=== PATIENT | male | born 1935 | race Caucasian/White ===

== ENCOUNTER 2024-02-14 09:56 | Emergency (ER) | payer OTHER, SELFPAY ==
--- NOTE | ~2024-02-14 | CT_ITS ---
History: Altered mental status PROCEDURE: CT head without contrast. COMPARISON: None TECHNIQUE: Axial imaging of the head performed from the skull base to the vertex without IV contrast. Sagittal a nd coronal reformations obtained. DLP: 605 mGy-cm FINDINGS: The ventricles are minimally dilated, appropriate for age. The dilatation of the ventricles is proportional to the degree of sulcal prominence, not uncommon in the senescent brain. 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 There is no mass, mass effect or midline shift. Basal ganglia calcifications are noted. There is no abnormal extra-axial fluid collection or intracranial hemorrhage. Visualized paranasal sinuses are clear. The mastoid air cells are well aerated. No acute displaced fractures within the overlying cranium. Impression: No acute intracranial hemorrhage or suspicious mass effect. Reviewed, dictated and finalized at location A. NING OPERATOR Impression: No acute intracranial hemorrhage or suspicious mass effect.
--- NOTE | ~2024-02-14 | XR_ITS ---
Exam: Abdomen 1 V HISTORY: AMS COMPARISON: None. TECHNIQUE: Supine images of the abdomen and pelvis. FINDINGS: Bowel gas pattern is non-obstructive. There is no free air or deep sulci. No pathologic calcifications are seen. Fecal stasis distends the rectum consistent with fecal impaction. Sternal wires and mediastinal clips are identified. Multiple nondilated loops of small and large aerated bowel are present with trace mural thickening. 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 Calcified atherosclerotic disease. IMPRESSION: Nonspecific, nonobstructive bowel gas pattern, with findings suggesting fecal impaction, as detailed above. Reviewed, dictated and finalized at location A. LS INSTRUCTOR IMPRESSION: Nonspecific, nonobstructive bowel gas pattern, with findings suggesting fecal i mpaction, as detailed above.
[2024-02-14 09:53] VITALS: BP 122/61; PULSE 56; RESP 15; TEMP 36.3; O2SAT 97
--- NOTE | 2024-02-14 10:21 | ED.GENADULT ---
HPI - General Adult General Chief complaint: Altered Mental Status Stated complaint: lethargic History of Present Illness HPI narrative: 88-year-old male present to the emergency department for evaluation for difficult to arouse this morning. EMS stated that the patient's went to wake him up and she was having difficulty arousing him. Patient arrived to the emergency department via EMS and was alert and appropriate. Patient denies any pain or complaint. Patient denies any recent illnesses. Patient states he has been eating and drinking okay. Patient states only reason he was difficult to arouse because he was sleeping. Related Data Allergies Allergy/AdvReac Type Severity Reaction Status Date / Time metformin AdvReac Abdominal Unverified 02/14/24 10:03 Pain Review of Systems Review of Systems: All systems reviewed & are unremarkable except as noted in HPI and below Exam Narrative: APPEARANCE: Well appearing, no pain, no distress, well-nourished. HEAD: normocephalic, atraumatic. EYES: PERRLA/EOMI, conjunctivae clear. NOSE: Normal no drainage EARS:TMS clear with good light reflex. THROAT: Pharynx clear, no exudate. NECK: Supple. No adenopathy, no masses. RESPIRATORY: Airway patent, respirations nonlabored. Clear to auscultation bilaterally, no rales, rhonchi, wheezing. CARDIOVASCULAR: Regular rate and rhythm without murmurs rubs or gallops. ABDOMINAL: Soft, nontender, nondistended, normal bowel sounds MUSCULOSKELETAL: Moves all extremities. Strength/ROM intact, No edema, No calf tenderness. NEURO: Alert. Cranial nerves II through XII intact. Grossly intact SKIN: Warm, dry. Normal Color Course Vital Signs Vital signs: Vital Signs Temperature 97.4 F L 02/14/24 09:53 Pulse Rate 56 L 02/14/24 09:53 Respiratory Rate 15 02/14/24 09:53 Blood Pressure 122/61 02/14/24 09:53 Pulse Oximetry 97 02/14/24 09:53 Oxygen Delivery Room Air 02/14/24 09:53 Temperature 97.4 F L 02/14/24 09:53 Pulse Rate 66 02/14/24 12:03 Respiratory Rate 21 H 02/14/24 12:03 Blood Pressure 137/54 L 02/14/24 12:03 Pulse Oximetry 100 02/14/24 12:03 Oxygen Delivery Room Air 02/14/24 10:00 Medical Decision Making MDM Narrative Medical decision making narrative: 88-year-old male presents to the emergency department for evaluation after having some increased somnolence this morning. Patient states he feels this baseline denies any complaints. Patient is afebrile but does have a leukocytosis of 12.2 with a hemoglobin of 10.8. INR is 1.2. Patient does have some mild elevation AST ALT and alk-phos. No acute abnormalities on his UA. Patient was negative for influenza RSV and for COVID. X-ray does show evidence of constipation. Head CT was negative for acute intracranial abnormality. After discussion with the daughter and patient both were comfortable with plan for discharge home. Patient denies any current complaints. Differential Diagnosis Differential Diagnosis: UTI, COVID, RSV, influenza, pneumonia, dehydration, intracranial abnormality Vital Signs Vital Signs: Vital Signs Temperature 97.4 F L 02/14/24 09:53 Pulse Rate 56 L 02/14/24 09:53 Respiratory Rate 15 02/14/24 09:53 Blood Pressure 122/61 02/14/24 09:53 Pulse Oximetry 97 02/14/24 09:53 Oxygen Delivery Room Air 02/14/24 09:53 Temperature 97.4 F L 02/14/24 09:53 Pulse Rate 66 02/14/24 12:03 Respiratory Rate 21 H 02/14/24 12:03 Blood Pressure 137/54 L 02/14/24 12:03 Pulse Oximetry 100 02/14/24 12:03 Oxygen Delivery Room Air 02/14/24 10:00 Lab Data Lab results reviewed: Yes I reviewed the patient's lab results. 02/14/24 10:22 02/14/24 10:22 Labs: Lab Results 02/14/24 02/14/24 Range/Units 10:22 11:25 WBC 12.2 H (4.5-10.0) K/mm3 RBC 4.05 L (4.6-6.20) M/mm3 Hgb 10.8 L (14.0-18.0) g/dL Hct 33.8 L (42.0-52.0) % MCV 83.5 (80-100) fl MCH 26.7 (26-34) pg MCHC 32.0 (32-36) g/dl RDW 16.1 H (11.5-14.5) % Plt Count 473 H (150-375) k/mm3 MPV 11.1 H (7.4-10.4) fl Immature Gran % (Auto) 0.4 (0-0.5) % Neut % (Auto) 60.7 (45.5-73.1) % Lymph % (Auto) 8.6 L (18.3-44.2) % [place] % (Auto) 6.2 (2.6-8.5) % Eos % (Auto) 23.4 H (0-4.4) % Baso % (Auto) 0.7 (0.2-1.2) % Lymph # (Auto) 1.05 (0.9-3.2) K/mm3 [place] # (Auto) 0.8 H (0.1-0.6) K/mm3 Eos # (Auto) 2.9 H (0-0.3) K/mm3 Baso # (Auto) 0.1 (0.0-0.1) K/mm3 Abs Immat Gran (auto) 0.05 H (0.00-0.031) K/mm3 Absolute Neuts (auto) 7.4 H (1.3-6.7) K/mm3 Absolute Nucleated RBC 0.000 (0.0-0.012) K/mm3 Nucleated RBC % 0.0 (0.0-0.2) % Platelet Estimate Increased (Adequate) Anisocytosis 1+ Ovalocytes 1+ [place] Cells 1+ Schistocytes None seen PT 15.6 H (11.1-14.7) Seconds INR 1.2 APTT 32.1 (22.3-36.8) Seconds Sodium 132 L (137-145) mmol/L Potassium 4.2 (3.4-5.0) mmol/L Chloride 100 (98-107) mmol/L Carbon Dioxide 31 H (22-30) mmol/L Anion Gap 1 L (4-12) mmol/L BUN 43 H (9-20) mg/dL Creatinine 1.00 (0.7-1.3) mg/dL Estim Creat Clear Calc 36 ml/min Estimated GFR > 60 (59 - ) Glucose 138 H (65-110) mg/dL Calcium 9.6 (8.4-10.2) mg/dL Total Bilirubin 0.7 (0.2-1.3) mg/dL AST 60 H (17-59) U/L ALT 52 H (6-50) U/L Alkaline Phosphatase 188 H (38-126) U/L Total Protein 7.0 (6.3-8.2) g/dL Albumin 3.0 L (3.5-5.1) g/dL Urine Color Yellow (Yellow) Urine Appearance Clear (Clear) Urine pH 5.5 (5.0-9.0) Ur Specific [place] 1.015 (1.001-1.035) Urine Protein 1+ H (Negative) mg/dL Urine Glucose (UA) Negative (Negative) mg/dL Urine Ketones Negative (Negative) mg/dL Ur Blood (Man) Negative (Negative) Urine Nitrate Negative (Negative) Urine Bilirubin Negative (Negative) Urine Urobilinogen 0.2 (<2.0) mg/dL Add Ur Microanalysis Reviewed Leukocyte Esterase Rfl Negative (Negative) TREVER/UL Urine RBC 0-2 (0-2) /hpf Urine WBC 0-5 (0-3) /hpf Ur Squamous Epith Cells None seen (Few) /hpf Urine Bacteria None seen /hpf Urine Casts 11-20 Influenza A (RT-PCR) Negative (Negative) Influenza B (RT-PCR) Negative (Negative) RSV (RT-PCR) Negative (Negative) SARS-CoV-2 RNA (RT-PCR) Negative (Negative) Imaging Data Radiologist's impression: Impressions Head CT 02/14/24 10:48 Impression: No acute intracranial hemorrhage or suspicious mass effect. Abdomen X-Ray 02/14/24 11:05 IMPRESSION: Nonspecific, nonobstructive bowel gas pattern, with findings suggesting fecal impaction, as detailed above. Discharge Plan Discharge Clinical Impression: Altered mental status Patient Disposition: Home, Self-Care Condition: Stable Instructions: Antibiotic Form, General Patient Instructions Additional Instructions: Have close follow-up with your primary care physician. If you have any worsening symptoms then please call or return to the emergency department. Patient Language: Danish Follow-up/Referrals: Anand Cabrales, [Primary Care Provider] -
[2024-02-14 10:29] LABS: Basophils Absolute Auto 0.1 K/mm3 (0.0-0.1); Basophils Percent Auto 0.7 % (0.2-1.2); Eosinophils Absolute Auto 2.9 K/mm3 (0-0.3); Eosinophils Percent Auto 23.4 % (0-4.4); Hematocrit 33.8 % (42.0-52.0); Hemoglobin 10.8 g/dL (14.0-18.0); Immature Granulocyte Absolute 0.05 K/mm3 (0.00-0.031); Immature Granulocyte Percent A 0.4 % (0-0.5); Lymphocytes Absolute Auto 1.05 K/mm3 (0.9-3.2); Lymphocytes Percent Auto 8.6 % (18.3-44.2); Mean Corpuscular Hemoglobin 26.7 pg (26-34); Mean Corpuscular Volume 83.5 fl (80-100); Mean Platelet Volume 11.1 fl (7.4-10.4); Monocytes Absolute Auto 0.8 K/mm3 (0.1-0.6); Monocytes Percent Auto 6.2 % (2.6-8.5); Neutrophils Absolute Auto 7.4 K/mm3 (1.3-6.7); Neutrophils Percent Auto 60.7 % (45.5-73.1); Platelet Count Result 473 k/mm3 (150-375); Red Blood Count 4.05 M/mm3 (4.6-6.20); Red Cell Distribution Width 16.1 % (11.5-14.5); White Blood Count 12.2 K/mm3 (4.5-10.0)
[2024-02-14 10:44] LABS: INR 1.2; Prothrombin Time 15.6 Seconds (11.1-14.7)
[2024-02-14 10:45] LABS: Alanine Aminotransferase 52 U/L (6-50); Alkaline Phosphatase 188 U/L (38-126); Anion Gap 1 mmol/L (4-12); Aspartate Amino Transferase 60 U/L (17-59); Bilirubin,Total 0.7 mg/dL (0.2-1.3); Blood Urea Nitrogen 43 mg/dL (9-20); Calcium 9.6 mg/dL (8.4-10.2); Carbon Dioxide 31 mmol/L (22-30); Chloride 100 mmol/L (98-107); Estimated CRCL calculation 36 ml/min; Estimated Glomerular Filt Rate > 60; Glucose 138 mg/dL (65-110); Partial Thromboplastin Time 32.1 Seconds (22.3-36.8); Potassium 4.2 mmol/L (3.4-5.0); Sodium 132 mmol/L (137-145)
[2024-02-14 10:47] LABS: Ovalocytes 1+; Platelet Estimate Increased (Adequate)
[2024-02-14 10:48] LABS: Anisocytosis 1+; Burr Cells 1+; Schistocytes None Seen
[2024-02-14 11:08] LABS: Influenza A QL RT-PCR Negative (Negative); Influenza B QL RT-PCR Negative (Negative); RSV RNA, RT-PCR Negative (Negative); SARS-CoV-2 RNA PCR Negative (Negative)
[2024-02-14 11:41] LABS: Add Urine Microscopic? YES; Appearance Urine Clear (Clear); Bacteria Urine None Seen /hpf; Bilirubin Urine Negative (Negative); Blood Urine Negative (Negative); Color Urine Yellow (Yellow); Glucose Urine UA Negative (Negative); Ketones Urine Negative (Negative); Leukocyte Esterase Ur Negative LEU/UL (Negative); Need Manual Microscopic Reviewed; Nitrate Urine Negative (Negative); Protein Urine 1+ mg/dL (Negative); RBC Urine 0-2 /hpf (0-2); Specific Grav Ur 1.015 (1.001-1.035); Squamous Epithelial Cell Urine None Seen /hpf (Few); Urobilinogen Urine 0.2 mg/dL (<2.0); WBC Urine 0-5 /hpf (0-3); pH Urine 5.5 (5.0-9.0)
[2024-02-14 12:03] VITALS: BP 137/54; PULSE 66; RESP 21; O2SAT 100
== END 2024-02-14 12:37 | disposition home or self-care (01) ==
PROVIDERS: Emergency Provider Emergency Medicine; PCP Internal Medicine
DX: R41.82 Altered mental status, unspecified (principal); Z20.822 Contact with and (suspected) exposure to COVID-19; R00.1 Bradycardia, unspecified; I45.9 Conduction disorder, unspecified
CPT/HCPCS: 36415; 70450; 74018; 80053; 81001; 85025; 85610; 85730; 87637; 93005; 99284